=== PATIENT | female | born 1995 | race Caucasian/White ===

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

== ENCOUNTER 2017-05-10 17:51 | Emergency (ER) | payer MEDICARE, MEDICAID ==
[2017-05-10 18:34] VITALS: BP 107/61
--- NOTE | 2017-05-10 18:41 | UC ---
Ear Complaint HPI - HPI Summary HPI Summary: 22 year old female with ear pain. History of ear pain and infection. BILATERAL EAR COMPLAINT. HAS HAD TUBES IN THE PAST AND HX OF RUPTURED EAR DRUM. EARS HAVE BEEN RED AND WARM TO TOUCH. HAS AN APPOINTMENT WITH ENT IN MAY. Has had the pain starting today per family member and constantly pulling at the ear and complaining. No fever. no discharge. no other complaints. [ End ] - History of Current Complaint Chief Complaint: UCEar Stated Complaint: LEFT EAR COMPLAINT Time Seen by Provider: 05/10/17 18:35 Hx Obtained From: Patient, Family/Edger Operator Hx Last Menstrual Period: UNKNOW , MOTHER IS NOT SURE Onset/Duration: Gradual Onset Severity Initially: Moderate Related History: Prior ENT Surgery - Allergies/Home Medications Allergies/Adverse Reactions: Allergies Allergy/AdvReac Type Severity Reaction Status Date / Time No Known Allergies Allergy Verified 05/10/17 18:18 Home Medications: Home Medications Melatonin 3 mg PO BID PRN 05/10/17 [History Confirmed 05/10/17] PMH/Surg Hx/FS Hx/Imm Hx Previously Healthy: Yes - Surgical History Surgical History: Yes Surgery Procedure, Year, and Place: bilateral ear tubes, ENT surgery 08/22/16 to check tubes, found perforated TM requiring stitching? - Family History Known Family History: Positive: Cardiac Disease, Hypertension, Diabetes - Social History Occupation: Student Lives: With Family Alcohol Use: None Substance Use Type: None Smoking Status (MU): Never Smoked Tobacco Have You Smoked in the Last Year: No - Immunization History Vaccination Up to Date: Yes Review of Systems ENT: Ear Ache, Nasal Discharge All Other Systems Reviewed And Are Negative: Yes Physical Exam Triage Information Reviewed: Yes Appearance: Well-Appearing, Well-Nourished, Obese Vital Signs: Initial Vital Signs Temp 98.5 F 05/10/17 18:23 Pulse 99 05/10/17 18:23 Resp 20 05/10/17 18:23 BP 107/61 05/10/17 18:23 Pulse Ox 99 05/10/17 18:23 Vital Signs Reviewed: Yes Eye Exam: Normal ENT Exam: Normal ENT: Positive: TM dull, Other: - right ear with ear tube and seous effusion . left ear with some mild inflammation of the ear canal with moderate cerumen and serous effusion. scarring present. no discharge. Dental Exam: Normal Neck exam: Normal Neck: Positive: 1 Respiratory Exam: Normal Cardiovascular Exam: Normal Abdominal Exam: Normal Musculoskeletal Exam: Normal Neurological Exam: Normal Psychological Exam: Normal Skin Exam: Normal Ear Complaint Course/Dx - Course Course Of Treatment: f/u with PCP and ENT . - Differential Dx/Diagnosis Differential Diagnosis/HQI/PQRI: Otitis Externa, Otitis Media, Perforated TM Provider Diagnoses: Otitis externa left Discharge - Discharge Plan Condition: Good Disposition: HOME Prescriptions: Neomyc/Polym/HC 1% OTIC SUSP* [Cortisporin Otic Susp 1%*] 4 drop LEFT EAR TID # 1 btl Patient Education Materials: Otitis Externa (ED) Referrals: Rossana Daniel MD [Primary Care Provider] - 4 Days
== END 2017-05-10 18:48 | disposition home or self-care (01) ==
LOC: UCCORT 17:51
DX: H60.92 Unspecified otitis externa, left ear (principal)
CPT/HCPCS: 99212; G0463

== ENCOUNTER 2017-05-19 12:07 | Emergency (ER) | payer MEDICAID, MEDICARE, OTHER ==
[2017-05-19 13:58] VITALS: BP 134/63
--- NOTE | 2017-05-19 14:21 | UC ---
Ear Complaint HPI - HPI Summary HPI Summary: 22 y/o Autistic female presents to the urgent care accompany by grandmother c/o B/L ear pain for the past week. Grand mother states her grand daughter was seen here at the clinic on 05/10/2017 for Rt otitis externa and Rx Otic drops. she has been applying the Otic drops, but now her grand daughter is complaining of both ear. Subjective fever last night, crying with pain. She gave her Tylenol PO to alleviate symptoms. She also has mild nasal congestion. Pt unable to describe pain, but is uncomfortably showing her ear hurts. Grand mother denies SOB, cough, N/V/D, abdominal pain. Grandmother states PT has Hx B/L ear tubes, and on 08/2016. she had surgery since one fell off and TM was ruptured. - History of Current Complaint Chief Complaint: UCEar Stated Complaint: EARS,COUGH Time Seen by Provider: 05/19/17 14:20 Hx Obtained From: Patient, Family/Blocker Automatic - grandmother Hx Last Menstrual Period: intermittent spotting. ?: No Onset/Duration: Gradual Onset, Lasting Days, Still Present Severity Initially: Mild Severity Currently: Moderate Pain Scale Used: unable to describe, Pt pointing at ear Aggravating Factors: Nothing Alleviating Factors: OTC Meds Associated Signs/Symptoms: Positive: Discharge - RT ear yellowish discharge - Allergies/Home Medications Allergies/Adverse Reactions: Allergies Allergy/AdvReac Type Severity Reaction Status Date / Time No Known Allergies Allergy Verified 05/19/17 13:52 PMH/Surg Hx/FS Hx/Imm Hx Previously Healthy: Yes Respiratory History: Asthma Other Neurological History: Autism - Surgical History Surgical History: Yes Surgery Procedure, Year, and Place: bilateral ear tubes, ENT surgery 08/22/16 to check tubes, found perforated TM requiring stitching? - Family History Known Family History: Positive: Cardiac Disease, Hypertension, Diabetes - Social History Occupation: Student Lives: With Family Alcohol Use: None Substance Use Type: None Smoking Status (MU): Never Smoked Tobacco Have You Smoked in the Last Year: No - Immunization History Vaccination Up to Date: Yes Review of Systems Constitutional: Negative Skin: Negative Eyes: Negative ENT: Ear Ache - B/L Respiratory: Negative Cardiovascular: Negative Gastrointestinal: Negative Genitourinary: Negative Motor: Negative Neurovascular: Negative Musculoskeletal: Negative Neurological: Negative Psychological: Negative Is Patient Immunocompromised?: No All Other Systems Reviewed And Are Negative: Yes Physical Exam Triage Information Reviewed: Yes Vital Signs: Initial Vital Signs Temp 98.5 F 05/19/17 13:54 Pulse 100 05/19/17 13:54 Resp 20 05/19/17 13:54 BP 134/63 05/19/17 13:54 Pulse Ox 97 05/19/17 13:54 - Additional Comments Vital signs: reviewed General:well appearing, well nourished, with mild pain distress pointing at the RT ear. Skin: [place], warm and dry, no evidence of atopic dermatitis, psoriasis, seborrhea. HEENT: -Head: atraumatic, non tender; no scalp dermatitis. -Eyes: sclera and conjunctiva clear, PERRLA, EOMI -Ears: no pre- or postauricular lymphadenopathy or erythema; RT external ear canal with erythema and yellowish purulent discharge, pinna tenderness on palpation, Rt TM injected ,with purulent discharge. LF external ear canal clear and LF TM WNL, ear tube in place. -Nose/Face: erythematous and edematous nasal mucosa with clear rhinorrhea, no frontal or maxillary sinus tender to palpation. -Mouth/Throat: Mucous membrane moist, posterior pharynx clear, no erythema or exudates. Neck: supple, FROM, nontender, no lymphadenopathy, no meningismus. Chest: Clear to auscultation, normal breath sounds Abd: soft, Bowel sounds active, Nontender. Back: no spinal or CVAT Neuro: A&O x4, GCS 15, no focal neuro deficits, Ear Complaint Course/Dx - Course Course Of Treatment: 22 y/o Autistic female presents to the urgent care accompany by grandmother c/o B/L ear pain. Grand mother states her grand daughter was seen here at the clinic on 05/10/2017 for Rt otitis externa and Rx Otic drops. she has been applying the Otic drops, but now her grand daughter is complaining of both ear. Subjective fever last night, crying with pain. She gave her Tylenol PO to alleviate symptoms. She also has mild nasal congestion. Pt unable to describe pain, but is uncomfortably showing her ear hurts. Grand mother denies SOB, cough, N/V/D, abdominal pain.Grandmother states Pt has Hx B/ L ear tubes, and on 08/2016. she had surgery since one fell off and TM was ruptured. Hx obtained. Pt with RT acute otitis Media on examination. Pt Rx Amoxicillin PO and Ibuprofen PO. Grand mothr advised to if not improvement of symptoms to f/u with her ENT or DR Rojas for further evaluation and treatment. Grandmother understood and agreed with D/C instructions. - Differential Dx/Diagnosis Differential Diagnosis/HQI/PQRI: Mastoiditis, Otitis Externa, Otitis Media, Perforated TM, Pharyngitis Provider Diagnoses: 1- Right Acute otitis Media Discharge - Discharge Plan Condition: Stable Disposition: HOME Prescriptions: Amoxicillin PO (*) [Amoxicillin 875 MG (*)] 875 mg PO BID #20 tab Ibuprofen TAB* [Motrin TAB* 800 MG] 800 mg PO Q6H #20 tab Patient Education Materials: Otitis Media (ED) Referrals: Rossana Daniel MD [Primary Care Provider] - 3 Days Zafar Rojas MD [Medical Doctor] - 1 Week Additional Instructions: 1-Please take full course of antibiotic as directed to avoid any resistance. continue applying otic drops in her LF external ear. 2-Take ibuprofen PO after meals for pain. 3-If symptoms do not improve or worsen please f/u with your PCP or return to the urgent care for further evaluation and treatment. 4- Please f/u with your ENT or Dr Rojas if your grand daughter's symptoms do not improve or she continues with recurrent ear infections.
== END 2017-05-19 15:00 | disposition home or self-care (01) ==
LOC: UCCORT 12:07
DX: H66.91 Otitis media, unspecified, right ear (principal); R05 Cough; R09.81 Nasal congestion
CPT/HCPCS: 99212; G0463

== ENCOUNTER 2017-08-11 11:24 | Emergency (ER) | payer MEDICARE, MEDICAID ==
[2017-08-11 14:17] VITALS: BP 126/76
--- NOTE | 2017-08-11 14:24 | UC ---
Ear Complaint HPI - History of Current Complaint Chief Complaint: UCEar Stated Complaint: LEFT EAR COMPLAINT Time Seen by Provider: 08/11/17 14:10 Hx Obtained From: Patient Hx Last Menstrual Period: intermittent spotting. ?: No Onset/Duration: Gradual Onset, Lasting Days Severity Initially: Moderate Severity Currently: Moderate Alleviating Factors: Nothing Associated Signs/Symptoms: Positive: URI Symptoms - Damon has had congestion and has been pointing to the left ear. SHe is non verbal and may have pain there. She also has Left TM rupture and has an appt with ENt in September already scheduled. - Allergies/Home Medications Allergies/Adverse Reactions: Allergies Allergy/AdvReac Type Severity Reaction Status Date / Time No Known Allergies Allergy Verified 08/11/17 14:08 PMH/Surg Hx/FS Hx/Imm Hx Previously Healthy: No - MR. Prior ear tubes. - Surgical History Surgical History: Yes Surgery Procedure, Year, and Place: bilateral ear tubes, ENT surgery 08/22/16 to check tubes, found perforated TM requiring stitching? - Family History Known Family History: Positive: Cardiac Disease, Hypertension, Diabetes - Social History Lives: With Family Alcohol Use: None Substance Use Type: None Smoking Status (MU): Never Smoked Tobacco Have You Smoked in the Last Year: No - Immunization History Most Recent Influenza Vaccination: 2017 Vaccination Up to Date: Yes Review of Systems ENT: Ear Ache, Sinus Congestion All Other Systems Reviewed And Are Negative: Yes Physical Exam Triage Information Reviewed: Yes Appearance: Well-Appearing, No Pain Distress, Obese Vital Signs: Initial Vital Signs Temp 98 F 08/11/17 14:10 Pulse 99 08/11/17 14:10 Resp 18 08/11/17 14:10 BP 126/76 08/11/17 14:10 Pulse Ox 96 08/11/17 14:10 Vital Signs Reviewed: Yes Eyes: Positive: Conjunctiva Clear. Negative: Conjunctiva Inflamed ENT Exam: Other - left tm has a perforation without any remaining redness, tenderness, swelling or drainage. ENT: Positive: Normal ENT inspection, Pharynx normal, Nasal congestion. Negative: Nasal drainage, TM bulging, TM dull, TM red, Tonsillar swelling, Tonsillar exudate Neck: Positive: Supple, Nontender, No Lymphadenopathy Respiratory: Positive: Lungs clear, Normal breath sounds, No respiratory distress, No accessory muscle use, Respiratory distress. Negative: Decreased breath sounds, Accessory muscle use, Crackles, Rhonchi, Stridor Cardiovascular: Positive: No Murmur, Pulses Normal, Brisk Capillary Refill Abdomen Description: Positive: No Organomegaly, Soft. Negative: Distended, Guarding Musculoskeletal: Positive: Strength Intact, ROM Intact, No Edema Neurological: Positive: Alert, Muscle Tone Normal. Negative: Fatigued Skin: Negative: rashes Ear Complaint Course/Dx - Differential Dx/Diagnosis Provider Diagnoses: uri. suspected ear pain. Discharge - Discharge Plan Condition: Good Disposition: HOME Patient Education Materials: Earache (ED) Referrals: Rossana Daniel MD [Primary Care Provider] - If Needed Additional Instructions: You can try decongestants such as tylenol cold and sinus, mucinex decongestant.
== END 2017-08-11 14:25 | disposition home or self-care (01) ==
LOC: UCCORT 11:24
DX: J06.9 Acute upper respiratory infection, unspecified (principal); H92.02 Otalgia, left ear; E66.9 Obesity, unspecified
CPT/HCPCS: 99211; G0463

== ENCOUNTER 2017-09-16 10:29 | Emergency (ER) | payer MEDICARE, MEDICAID ==
[2017-09-16 12:40] VITALS: BP 117/70
--- NOTE | 2017-09-16 12:51 | UC ---
Ear Complaint HPI - HPI Summary HPI Summary: Pt accompanied by grandmother. Grandmother reports that pt has been "screaming" an dc/o of left ear pain. Pt has history of bilateral ear tubes and [place] [facility] [place] and has known ruptured Right TM rupture. - History of Current Complaint Chief Complaint: UCEar Stated Complaint: EAR PAIN Time Seen by Provider: 09/16/17 12:37 Hx Obtained From: Family/Neon Sign Maker Hx Last Menstrual Period: unknown ?: No Severity Initially: Mild Severity Currently: Moderate Pain Intensity: 6 Alleviating Factors: Other (Noted In Comments) - pt unable to convey information due to preexisitng cognitive impairment. - Allergies/Home Medications Allergies/Adverse Reactions: Allergies Allergy/AdvReac Type Severity Reaction Status Date / Time No Known Allergies Allergy Verified 09/16/17 12:35 PMH/Surg Hx/FS Hx/Imm Hx Previously Healthy: Yes - cognitive impairment - Surgical History Surgical History: Yes Surgery Procedure, Year, and Place: bilateral ear tubes, ENT surgery 08/22/16 to check tubes, found perforated TM requiring stitching? - Family History Known Family History: Positive: Cardiac Disease, Hypertension, Diabetes - Social History Occupation: Disabled Lives: With Family Alcohol Use: None Substance Use Type: None Smoking Status (MU): Never Smoked Tobacco Have You Smoked in the Last Year: No - Immunization History Most Recent Influenza Vaccination: 2017 Vaccination Up to Date: Yes Review of Systems Constitutional: Fever - unknown, Other - cognitive impairment, unreliable historian Skin: Negative Eyes: Negative ENT: Ear Ache Respiratory: Negative Cardiovascular: Negative Gastrointestinal: Negative Genitourinary: Negative Motor: Negative Neurovascular: Negative Musculoskeletal: Negative Neurological: Negative Psychological: Negative Is Patient Immunocompromised?: No All Other Systems Reviewed And Are Negative: Yes Physical Exam Triage Information Reviewed: Yes Appearance: Pain Distress - c/o ear pain Vital Signs: Initial Vital Signs Temp 99.2 F 09/16/17 12:32 Pulse 98 09/16/17 12:32 Resp 18 09/16/17 12:32 BP 117/70 09/16/17 12:32 Pulse Ox 98 09/16/17 12:32 Vital Signs Reviewed: Yes Eye Exam: Normal ENT Exam: Other ENT: Positive: Other - left TM ruptured, Right ear canal ear tube noted and appears to be out of TM and reveresd in ear canal Neck exam: Normal Respiratory Exam: Normal Cardiovascular Exam: Normal Musculoskeletal Exam: Normal Neurological Exam: Normal Psychological Exam: Other Psychological: Positive: Other: - cognitive impairment Skin Exam: Normal Ear Complaint Course/Dx - Differential Dx/Diagnosis Differential Diagnosis/HQI/PQRI: Otitis Media, URI Provider Diagnoses: left ear pain- ruptured TM. FB right Ear canal Discharge - Discharge Plan Condition: Stable Disposition: HOME Patient Education Materials: Ruptured Eardrum (ED), Earache (ED) Referrals: Rossana Daniel MD [Primary Care Provider] - Additional Instructions: Please follow up with your PCP and ENT provider as needed. Please note in the physical exam, it was noted that the right ear tube is in the ear canal.
== END 2017-09-16 13:05 | disposition home or self-care (01) ==
LOC: UCCORT 10:29
DX: S09.22XA Traumatic rupture of left ear drum, initial encounter (principal); T16.2XXA Foreign body in left ear, initial encounter; X58.XXXA Exposure to other specified factors, initial encounter; Y93.9 Activity, unspecified; Y92.9 Unspecified place or not applicable
CPT/HCPCS: 99212; G0463

== ENCOUNTER 2018-03-14 12:47 | Emergency (ER) | payer MEDICAID, MEDICARE, OTHER ==
[2018-03-14 13:15] VITALS: BP 102/50
--- NOTE | 2018-03-14 13:18 | UC ---
Ear Complaint HPI - HPI Summary HPI Summary: 23 year old female with ear pain. Has history of numerous ear infections. Goes to ENT Dr Rojas and called in the office and they started topical drops and per grand parent not improved with the drops. They called ENT today and could not get a hold of any one that is why they came to as they believe patient may need oral antibiotics and not just topical. No fever. no ear discharge out of normal. patient with autism and has difficulty communicating her symptoms and concerns. Has had left ear pain and it looked red to grand mother. - History of Current Complaint Chief Complaint: UCEar Stated Complaint: EAR CONCERN Time Seen by Provider: 03/14/18 13:01 Hx Obtained From: Patient, Family/Supervisor Knitting Hx Last Menstrual Period: none Onset/Duration: Gradual Onset Severity Initially: Moderate Severity Currently: Severe Pain Intensity: 10 - Allergies/Home Medications Allergies/Adverse Reactions: Allergies Allergy/AdvReac Type Severity Reaction Status Date / Time No Known Allergies Allergy Verified 03/14/18 13:09 Home Medications: Home Medications Acetaminophen [Acetaminophen Extra Strength] 500 mg PO ONCE PRN 03/14/18 [ History Confirmed 03/14/18] Loratadine 10 mg PO QPM 03/14/18 [History Confirmed 03/14/18] Melatonin 1 mg PO BID 03/14/18 [History Confirmed 03/14/18] Ofloxacin 0.3% OTIC.OLEG* [Floxin 0.3% OTIC.OLEG*] 4 drop BOTH EARS BID 03/14/18 [ History Confirmed 03/14/18] PMH/Surg Hx/FS Hx/Imm Hx Previously Healthy: Yes - Surgical History Surgical History: Yes Surgery Procedure, Year, and Place: bilateral ear tubes, ENT surgery 08/22/16 to check tubes, found perforated TM requiring stitching? - Family History Known Family History: Positive: Cardiac Disease, Hypertension, Diabetes - Social History Occupation: Unemployed Alcohol Use: None Substance Use Type: None Smoking Status (MU): Never Smoked Tobacco Have You Smoked in the Last Year: No - Immunization History Most Recent Influenza Vaccination: 2017 Vaccination Up to Date: Yes Review of Systems ENT: Ear Ache Psychological: Anxious Is Patient Immunocompromised?: No All Other Systems Reviewed And Are Negative: Yes Physical Exam Triage Information Reviewed: Yes Completion Of Physical Exam Limited Due To: Other - non verbal Appearance: Well-Appearing, No Pain Distress, Well-Nourished Vital Signs: Initial Vital Signs Temp 98.3 F 03/14/18 12:55 Pulse 103 03/14/18 12:55 Resp 20 03/14/18 12:55 BP 102/50 03/14/18 12:55 Pulse Ox 98 03/14/18 12:55 Vital Signs Reviewed: Yes Eye Exam: Normal ENT: Positive: Pharynx normal, Nasal congestion, TM bulging, TM dull, TM red - left Respiratory Exam: Normal Cardiovascular Exam: Normal Musculoskeletal Exam: Normal Neurological Exam: Normal Psychological Exam: Normal Skin Exam: Normal Ear Complaint Course/Dx - Course Course Of Treatment: f/u with ENT and cont with the drops as well. RTO if any concerns. - Differential Dx/Diagnosis Differential Diagnosis/HQI/PQRI: Otitis Externa, Otitis Media, Perforated TM Provider Diagnoses: Left AOM Discharge - Sign-Out/Discharge Documenting (check all that apply): Patient Departure - Discharge Plan Condition: Good Disposition: HOME Prescriptions: Amoxicillin PO (*) [Amoxicillin 875 MG (*)] 875 mg PO BID 10 Days #20 tab Patient Education Materials: Ear Infection (ED) Referrals: Rossana Daniel MD [Primary Care Provider] - 4 Days Additional Instructions: Please follow up with your ENT doctor . - Billing Disposition and Condition Condition: GOOD Disposition: Home
== END 2018-03-14 13:46 | disposition home or self-care (01) ==
LOC: UCCORT 12:47
DX: H66.92 Otitis media, unspecified, left ear (principal)
CPT/HCPCS: 99212; G0463

== ENCOUNTER 2018-07-28 11:30 | Emergency (ER) | payer MEDICARE ==
[2018-07-28 12:17] VITALS: BP 128/90
--- NOTE | 2018-07-28 12:37 | UC ---
Skin Complaint HPI - HPI Summary HPI Summary: Started w/ L lower mouth irritation and then a pimple 2 days ago. Grandmother is primary promotional marketing agent and states shes had impetigo before and would like ointment. its worsened w/ saliva and moisture, nothing makes it better. Grandmother also wondering if we could check ears. She does have TM issues and has ENT SPEcialist on board but tubes recently fell out and wondering if there is an infection in R ear. nothing makes the pain better/worse. - History of Current Complaint Chief Complaint: UCSkin Time Seen by Provider: 07/28/18 12:06 Stated Complaint: SKIN CONCERN Hx Obtained From: Family/Geothermal Heat Pump Machinist Hx From Patient Unobtainable Due To: Other - mental/cognition Hx Last Menstrual Period: n/a Onset/Duration: Gradual Onset Pain Intensity: 5 Pain Scale Used: 0-10 Numeric - Allergy/Home Medications Allergies/Adverse Reactions: Allergies Allergy/AdvReac Type Severity Reaction Status Date / Time No Known Allergies Allergy Verified 07/28/18 12:17 PMH/Surg Hx/FS Hx/Imm Hx - Additional Past Medical History Additional PMH: mental retardation - Surgical History Surgical History: Yes Surgery Procedure, Year, and Place: bilateral ear tubes, ENT surgery 08/22/16 to check tubes, found perforated TM requiring stitching? - Family History Known Family History: Positive: Cardiac Disease, Hypertension, Diabetes - Social History Alcohol Use: None Substance Use Type: None Smoking Status (MU): Never Smoked Tobacco Have You Smoked in the Last Year: No - Immunization History Most Recent Influenza Vaccination: 2017 Vaccination Up to Date: Yes Review of Systems All Other Systems Reviewed And Are Negative: Yes Constitutional: Positive: Negative. Negative: Fever Skin: Positive: Rash - mouth ENT: Positive: Ear Ache - R. Negative: Dental Pain, Sore Throat Respiratory: Positive: Negative Neurological: Negative: Headache Physical Exam Triage Information Reviewed: Yes Appearance: Well-Appearing Vital Signs: Initial Vital Signs Temp 98 F 07/28/18 12:04 Pulse 104 07/28/18 12:04 Resp 22 07/28/18 12:04 BP 128/90 07/28/18 12:04 Pulse Ox 97 07/28/18 12:04 Vital Signs Reviewed: Yes Eyes: Positive: Conjunctiva Clear ENT: Positive: Other - L TM unremarkable. R canal inflammaed w/ debris and TM open from previous tube placement. Dental: Negative: Gross Decay/Caries @ Respiratory Exam: Normal Cardiovascular Exam: Normal Skin: Positive: Rashes - irritation on L lower lip/skin w/ some crusting Course/Dx - Course Course Of Treatment: Recurrent impetigo in L lower skin of mouth. Mild case. R TM needs f/u from ENT since tube fell out and will tx her OE. - Differential Diagnoses - Skin Complaint Differential Diagnoses: Cellulitis, Drug Rash, Tinea, Viral Exanthem - Diagnoses Provider Diagnosis: Impetigo, Otitis externa Discharge - Sign-Out/Discharge Documenting (check all that apply): Patient Departure All imaging exams completed and their final reports reviewed: No Studies - Discharge Plan Condition: Good Disposition: HOME Prescriptions: Neomyc/Polym/HC 1% OTIC SUSP* [Cortisporin Otic Susp 1%*] 4 drop RIGHT EAR TID # 1 btl Patient Education Materials: Impetigo (DC) Referrals: Rossana Daniel MD [Primary Care Provider] - Additional Instructions: For your ENT appt in Sep please ensure there is a proper visit where a provider can recheck ears/Tympanic membranes. - Billing Disposition and Condition Condition: GOOD Disposition: Home
[2018-07-28] MEDS ORDERED: Mupirocin 2% OINT* TUBE TOPICAL SCH (21:00)
== END 2018-07-28 12:46 | disposition home or self-care (01) ==
LOC: UCCORT 11:30
DX: L01.00 Impetigo, unspecified (principal); F79 Unspecified intellectual disabilities; H60.91 Unspecified otitis externa, right ear
CPT/HCPCS: 99212; G0463

== ENCOUNTER 2018-09-07 12:03 | Emergency (ER) | payer MEDICARE, OTHER ==
[2018-09-07 12:41] VITALS: BP 122/69
--- NOTE | 2018-09-07 13:21 | UC ---
Skin Complaint HPI - HPI Summary HPI Summary: Patient was being treated for impetigo under her arms from a rash that started after her cartaker shaved her armpits. is is not improving but getting worse. no hx of MRSA - History of Current Complaint Chief Complaint: UCSkin Time Seen by Provider: 09/07/18 13:08 Stated Complaint: SKIN COMPLAINT Hx Obtained From: Family/Machinist Hx Last Menstrual Period: n/a ?: No Onset/Duration: Sudden Onset, Lasting Days Skin Exposure Onset/Duration: Days Ago Timing: Constant Onset Severity: Mild Current Severity: Moderate Pain Intensity: 4 Location: Diffuse - bilateral axilla Aggravating Factor(s): Clothing, Wet Conditions, Humidity, Touch Alleviating Factor(s): Nothing Associated Signs & Symptoms: Positive: Rash - Allergy/Home Medications Allergies/Adverse Reactions: Allergies Allergy/AdvReac Type Severity Reaction Status Date / Time amoxicillin Allergy Rash Verified 09/07/18 12:42 Home Medications: Home Medications Cephalexin CAP* [Keflex CAP*] 250 mg PO BID 09/07/18 [History Confirmed 09/07/18 ] LORazepam TAB(*) [Ativan 1 MG TAB (*)] 1 mg PO BID 09/07/18 [History Confirmed 09/07/18] Omeprazole 20 mg PO DAILY 09/07/18 [History Confirmed 09/07/18] QUEtiapine TAB* [Seroquel 100 MG *] 50 mg PO BEDTIME 09/07/18 [History Confirmed 09/07/18] PMH/Surg Hx/FS Hx/Imm Hx Previously Healthy: Yes - Surgical History Surgical History: Yes Surgery Procedure, Year, and Place: bilateral ear tubes, ENT surgery 08/22/16 to check tubes, found perforated TM requiring stitching - Family History Known Family History: Positive: Cardiac Disease, Hypertension, Diabetes - Social History Alcohol Use: None Substance Use Type: None Smoking Status (MU): Never Smoked Tobacco Have You Smoked in the Last Year: No - Immunization History Most Recent Influenza Vaccination: 2017 Vaccination Up to Date: Yes Review of Systems All Other Systems Reviewed And Are Negative: Yes Constitutional: Positive: Negative Skin: Positive: Rash Eyes: Positive: Negative ENT: Positive: Negative Respiratory: Positive: Negative Cardiovascular: Positive: Negative Gastrointestinal: Positive: Negative Genitourinary: Positive: Negative Motor: Positive: Negative Neurovascular: Positive: Negative Musculoskeletal: Positive: Negative Neurological: Positive: Negative Psychological: Positive: Other - mental delay Is Patient Immunocompromised?: No Physical Exam Triage Information Reviewed: Yes Appearance: Well-Appearing, Well-Nourished, Pain Distress Vital Signs: Initial Vital Signs Temp 97.5 F 09/07/18 12:36 Pulse 99 09/07/18 12:36 Resp 18 09/07/18 12:36 BP 122/69 09/07/18 12:36 Pulse Ox 97 09/07/18 12:36 Vital Signs Reviewed: Yes Eye Exam: Normal ENT Exam: Normal Dental Exam: Normal Neck exam: Normal Respiratory Exam: Normal Respiratory: Positive: Chest non-tender, Lungs clear, Normal breath sounds Cardiovascular Exam: Normal Cardiovascular: Positive: RRR, No Murmur, Pulses Normal Abdominal Exam: Normal Abdomen Description: Positive: Nontender, No Organomegaly, Soft Musculoskeletal Exam: Normal Neurological Exam: Normal Psychological Exam: Normal Skin: Positive: Rashes - red rash under bilateral arms, small scabbed areas noted Course/Dx - Differential Diagnoses - Skin Complaint Differential Diagnoses: Abscess, Cellulitis, Contact Dermatitis, Urticaria - Diagnoses Provider Diagnosis: Folliculitis Discharge - Sign-Out/Discharge Documenting (check all that apply): Patient Departure All imaging exams completed and their final reports reviewed: No Studies - Discharge Plan Condition: Stable Disposition: HOME Prescriptions: Sulfamethox/Trimethoprim DS* [Bactrim DS 800/160 TAB*] 1 tab PO BID #14 tab Patient Education Materials: Folliculitis (ED) Referrals: JEANE Wolf [Primary Care Provider] - Additional Instructions: 1. stop the current antibiotics 2. Start the new antibiotics you should be able to get two doses started today. 3. COntinue to clean with warm water and thouroughly dry 4. avoid shaving at this time 5. Follow up as needed. - Billing Disposition and Condition Condition: STABLE Disposition: Home
--- NOTE | 2018-09-08 15:55 | UC ---
- Progress Note Progress Note: Talked with patients mofany mcmullen is her farmworker egg producing farm to notify her of the Positive MRSA results. Advised to Follow up with her PCP for care. Course/Dx - Diagnoses Provider Diagnoses: Folliculitis Discharge - Sign-Out/Discharge Documenting (check all that apply): Post-Discharge Follow Up All imaging exams completed and their final reports reviewed: No Studies - Discharge Plan Condition: Stable Disposition: HOME Prescriptions: Sulfamethox/Trimethoprim DS* [Bactrim DS 800/160 TAB*] 1 tab PO BID #14 tab Patient Education Materials: Folliculitis (ED) Referrals: JEANE Wolf [Primary Care Provider] - Additional Instructions: 1. stop the current antibiotics 2. Start the new antibiotics you should be able to get two doses started today. 3. COntinue to clean with warm water and thouroughly dry 4. avoid shaving at this time 5. Follow up as needed. - Billing Disposition and Condition Condition: STABLE Disposition: Home
== END 2018-09-07 13:23 | disposition home or self-care (01) ==
LOC: UCCORT 12:03
DX: L73.9 Follicular disorder, unspecified (principal); F79 Unspecified intellectual disabilities; Z22.322 Carrier or suspected carrier of Methicillin resistant Staphylococcus aureus; Z88.0 Allergy status to penicillin
CPT/HCPCS: 87070; 87077; 87186; 87205; 87640; 87641; 99212; G0463

== ENCOUNTER 2019-04-24 18:08 | Emergency (ER) | payer MEDICARE, OTHER ==
[2019-04-24 18:43] VITALS: BP 112/80
--- NOTE | 2019-04-24 19:21 | ED ---
Throat Pain/Nasal Congestion - HPI Summary HPI Summary: 24 yr old female with the complaint of right ear pain. She is non verbal. she is here with her Grandmother who takes care of her. She had her ears flushed at her primary care yesterday and has had some brown drainage from each ear. She is pulling on the right ear a bit today. No other complaints. - History of Current Complaint Chief Complaint: UCEar Time Seen by Provider: 04/24/19 19:02 - Allergies/Home Medications Allergies/Adverse Reactions: Allergies Allergy/AdvReac Type Severity Reaction Status Date / Time amoxicillin Allergy Rash Verified 04/24/19 18:44 Home Medications: Home Medications Paliperidone [Invega] 3 mg PO DAILY 04/24/19 [History Confirmed 04/24/19] diphenhydrAMINE HCl [Benadryl Allergy] 50 mg PO BEDTIME 04/24/19 [History Confirmed 04/24/19] PMH/Surg Hx/FS Hx/Imm Hx - Surgical History Surgery Procedure, Year, and Place: bilateral ear tubes, ENT surgery 08/22/16 to check tubes, found perforated TM requiring stitching Infectious Disease History: No Infectious Disease History: Denies: History Other Infectious Disease, Traveled Outside the [place] in Last 30 Days - Family History Known Family History: Positive: Cardiac Disease, Hypertension, Diabetes - Social History Occupation: Employed Full-time Alcohol Use: None Substance Use Type: Reports: None Smoking Status (MU): Never Smoked Tobacco Have You Smoked in the Last Year: No Review of Systems Constitutional: Negative Positive: Ear Ache All Other Systems Reviewed And Are Negative: Yes Physical Exam Triage Information Reviewed: Yes Vital Signs On Initial Exam: Initial Vitals Temp Pulse Resp BP Pulse Ox 97.7 F 115 18 112/80 98 04/24/19 18:35 04/24/19 18:35 04/24/19 18:35 04/24/19 18:35 04/24/19 18:35 Vital Signs Reviewed: Yes Appearance: Positive: Well-Appearing, No Pain Distress Skin: Positive: Warm, Skin Color Reflects Adequate Perfusion Head/Face: Positive: Normal Head/Face Inspection Eyes: Positive: EOMI ENT: Positive: TM red - right with erythema. No perforation. There is some soft wax in each external canal. Left TM appears wnl. Neck: Positive: Nontender Respiratory/Lung Sounds: Positive: Clear to Auscultation, Breath Sounds Present Cardiovascular: Positive: RRR. Negative: Murmur Abdomen Description: Negative: Distended Musculoskeletal: Positive: Strength/ROM Intact Neurological: Positive: Sensory/Motor Intact, Alert, Oriented to Person Place, Time, CN Intact II-III, Normal Gait, Speech Normal Psychiatric: Positive: Normal Diagnostics - Vital Signs Vital Signs Temp Pulse Resp BP Pulse Ox 04/24/19 18:35 97.7 F 115 18 112/80 98 - Laboratory Lab Statement: Any lab studies that have been ordered have been reviewed, and results considered in the medical decision making process. EENT Course/Dx - Course Course Of Treatment: 24 yr old female with right otitis media. Rx with Bactrim DS. FU with PMD. - Diagnoses Provider Diagnoses: Right otitis media Discharge ED - Sign-Out/Discharge Documenting (check all that apply): Patient Departure All imaging exams completed and their final reports reviewed: No Studies - Discharge Plan Condition: Good Disposition: HOME Prescriptions: Sulfamethox/Trimethoprim DS* [Bactrim DS 800/160 TAB*] 1 tab PO BID #20 tab Patient Education Materials: Ear Infection (ED) Referrals: Radha Reynoso NP [Primary Care Provider] - 2 Days - Billing Disposition and Condition Condition: GOOD Disposition: Home
== END 2019-04-24 19:31 | disposition home or self-care (01) ==
LOC: UCCORT 18:08
DX: H66.91 Otitis media, unspecified, right ear (principal); Z88.0 Allergy status to penicillin
CPT/HCPCS: 99212; G0463

== ENCOUNTER 2019-05-07 16:47 | Emergency (ER) | payer OTHER ==
[2019-05-07 17:46] VITALS: BP 115/68
--- NOTE | 2019-05-07 19:23 | UC ---
Ear Complaint HPI - HPI Summary HPI Summary: 24-year-old female with history of autism presents with her grandmother who is her primary caregiver reporting persistent right ear pain with drainage. Patient was seen at this facility on 04/24/2019 for similar complaints after her ear had been irrigated at primary care the day before, she was diagnosed with a right otitis media, and started on a course of Bactrim DS. Grandmother reports that they completed the entire course of antibiotics with no improvement in symptoms. Grandmother states that approximately 3 or 4 days ago she started noticing drainage on her pillowcase. Patient has been followed by ENT in [place] in the past however has not been seen in a couple years. Patient is nonverbal and unable to contribute to the history. Denies fever, chills, or URI symptoms. - History of Current Complaint Chief Complaint: UCEar Stated Complaint: EAR PAIN Time Seen by Provider: 05/07/19 19:04 Hx Last Menstrual Period: grandmother states pt does not get a menses Pain Intensity: 0 - Allergies/Home Medications Allergies/Adverse Reactions: Allergies Allergy/AdvReac Type Severity Reaction Status Date / Time amoxicillin Allergy Rash Verified 05/07/19 17:46 Home Medications: Home Medications Acetaminophen [Tylenol Extra Strength] 500 mg PO DAILY 05/07/19 [History Confirmed 05/07/19] PMH/Surg Hx/FS Hx/Imm Hx GI/ History: Gastroesophageal Reflux Psychological History: Other - Autism - Surgical History Surgical History: None Surgery Procedure, Year, and Place: bilateral ear tubes, ENT surgery 08/22/16 to check tubes, found perforated TM requiring stitching - Family History Known Family History: Positive: Cardiac Disease, Hypertension, Diabetes - Social History Occupation: Disabled Lives: With Family Alcohol Use: None Substance Use Type: None Smoking Status (MU): Never Smoked Tobacco Have You Smoked in the Last Year: No - Immunization History Most Recent Influenza Vaccination: 2017 Vaccination Up to Date: Yes Review of Systems All Other Systems Reviewed And Are Negative: Yes Constitutional: Negative: Fever, Chills Skin: Negative: Rash Eyes: Negative: Drainage, Eye Redness ENT: Positive: Ear Ache. Negative: Nasal Discharge, Sinus Congestion, Sinus Pain/Tenderness Respiratory: Negative: Cough Is Patient Immunocompromised?: No Physical Exam - Summary Physical Exam Summary: GENERAL APPEARANCE: Alert and cooperative, non-verbal, obese adult with developmental disability who appears to be in no acute distress. EYES: Conjunctiva clear. No drainage. EARS: Bialteral external auditory canals with moderate amount of soft cerumen. Left TM partially observed and was intact, opaque with moderate scar tissue but no erythema. Right TM was also partially observed but appeared to be ruptured and mildly erythematous without drainage. NOSE: No nasal discharge. THROAT: Pharynx normal. No tonsilar inflammation, swelling, exudate, or lesions. Uvula midline. NECK: Neck supple, non-tender without lymphadenopathy. CARDIAC: Normal S1 and S2. No S3, S4 or murmurs. Rhythm is regular. There is no peripheral edema, cyanosis or pallor. Extremities are warm and well perfused. Capillary refill is less than 2 seconds. Peripheral pulses intact. LUNGS: Clear to auscultation without rales, rhonchi, wheezing or diminished breath sounds. ABDOMEN: Positive bowel sounds. Soft, nondistended, nontender. No guarding or rebound. No masses or hepatosplenomegally. MUSKULOSKELETAL: ROM intact to all extremities. No joint erythema or tenderness. Normal muscular development. Normal gait. SKIN: Skin normal color, texture and turgor with no lesions or eruptions. Triage Information Reviewed: Yes Vital Signs: Initial Vital Signs Temp 97.7 F 05/07/19 17:44 Pulse 97 05/07/19 17:44 Resp 17 05/07/19 17:44 BP 115/68 05/07/19 17:44 Pulse Ox 97 05/07/19 17:44 Vital Signs Reviewed: Yes Ear Complaint Course/Dx - Course Course Of Treatment: 24-year-old female with history of autism presents with her grandmother who is her primary caregiver reporting persistent right ear pain with drainage. Patient was seen at this facility on 04/24/2019 for similar complaints after her ear had been irrigated at primary care the day before, she was diagnosed with a right otitis media, and started on a course of Bactrim DS. Grandmother reports that they completed the entire course of antibiotics with no improvement in symptoms. Grandmother states that approximately 3 or 4 days ago she started noticing drainage on her pillowcase. Patient has been followed by ENT in [place] in the past however has not been seen in a couple years. Patient is nonverbal and unable to contribute to the history. Denies fever, chills, or URI symptoms. Afebrile. Vital signs stable. Patient had bilateral external auditory canals with moderate amount of soft cerumen, left TM partially observed and was intact, opaque with moderate scar tissue but no erythema, right TM was also partially observed but appeared to be ruptured and mildly erythematous without drainage, and otherwise unremarkable exam. Since she was recently on oral antibiotics I will simply put her on ofloxacin otic drops 10 drops into the right ear once daily 7 days and recommended [id number] analgesics as needed for pain. Offered referral to ENT however grandmother declined. She is to follow-up with her primary care provider in 3-5 days to have the ear rechecked. Anticipatory guidance warning symptoms were reviewed with the grandmother. Verbalizes understanding and agrees with plan of care. - Differential Dx/Diagnosis Differential Diagnosis/HQI/PQRI: Cerumen Impaction, Otitis Externa, Otitis Media , Perforated TM Provider Diagnosis: Otitis media of right ear with rupture of tympanic membrane Discharge ED - Sign-Out/Discharge Documenting (check all that apply): Patient Departure All imaging exams completed and their final reports reviewed: No Studies - Discharge Plan Condition: Stable Disposition: HOME Prescriptions: Ofloxacin 0.3% (Ear Drop)* [Floxin 0.3% OTIC.OLEG (Ear Drop)] 10 drop RIGHT EAR DAILY 7 Days #1 btl Patient Education Materials: Ruptured Eardrum (ED), Ear Infection (ED) Referrals: Radha Reynoso NP [Primary Care Provider] - 3 Days Additional Instructions: Your daughter has an ear infection with ruptured tympanic membrane of the right ear. Start ofloxacin otic drops. Instill 10 drops into the right ear once daily for 7 days. Avoid getting water into the ear. Use acetaminophen (Tylenol) or ibuprofen (Advil, Motrin according to directions as needed for pain. Follow-up with your daughter's primary care provider in 3-5 days to have a recheck of the ear. Immediate medical attention in the emergency room if she develops a fever greater than 100.5 F, has severe ear pain that is not managed with acetaminophen or ibuprofen, has blood draining from the ear, or any worsening of symptoms. - Billing Disposition and Condition Condition: STABLE Disposition: Home
== END 2019-05-07 19:30 | disposition home or self-care (01) ==
LOC: UCCORT 16:47
DX: H66.91 Otitis media, unspecified, right ear (principal); H72.91 Unspecified perforation of tympanic membrane, right ear; F84.0 Autistic disorder; Z88.0 Allergy status to penicillin
CPT/HCPCS: 99212; G0463

== ENCOUNTER 2019-06-22 12:24 | Emergency (ER) | payer MEDICARE, MEDICAID ==
--- OUTSIDE RECORDS SUMMARY | 2019-06-22 12:45 | XMS REPORT ---
:1995 Author Care Team Providers Name Role Phone Unavailable Unavailable Unavailable Problems Condition Condition Condition Status Onset Resolution Last Treating Comments Name Details Category Date Date Treatment Clinician Date Autistic Active 2015-05-13 Disorder 00:00:00 Allergies, Adverse Reactions, Alerts This patient has no known allergies or adverse reactions. Social History Smoking Status Start Date Stop Date Unknown if ever smoked Social History Observation Description Sex Female Medications This patient has no known medications. Vital Signs This patient has no known vital signs. Procedures This patient has no known procedures. Reason for Referral This patient has no known reason for referral. Chief Complaint and Reason for Visit This patient event has no chief complaint or reason for visit specified. Results This patient has no known results. Assessments This patient has no known assessments.
[2019-06-22 12:51] VITALS: BP 113/63
--- NOTE | 2019-06-22 13:03 | UC ---
Ear Complaint HPI - HPI Summary HPI Summary: Pt is accompanied by mother. Mom reports that pt has not been "acting like herself". Pt is cognitively impaired and limited speech/verbal ability. - History of Current Complaint Chief Complaint: UCGeneralIllness Stated Complaint: BILATERAL EAR COMPLAINT Time Seen by Provider: 06/22/19 12:46 Hx Obtained From: Family/Clinical Research Director Hx Last Menstrual Period: unknown ?: No Onset/Duration: Sudden Onset - yesterday Severity Initially: Mild Severity Currently: Mild Pain Intensity: 0 - Allergies/Home Medications Allergies/Adverse Reactions: Allergies Allergy/AdvReac Type Severity Reaction Status Date / Time amoxicillin Allergy Rash Verified 06/22/19 12:51 PMH/Surg Hx/FS Hx/Imm Hx Previously Healthy: Yes - Surgical History Surgical History: None Surgery Procedure, Year, and Place: bilateral ear tubes, ENT surgery 08/22/16 to check tubes, found perforated TM requiring stitching - Family History Known Family History: Positive: Cardiac Disease, Hypertension, Diabetes - Social History Occupation: Disabled Lives: With Family Alcohol Use: None Substance Use Type: None Smoking Status (MU): Never Smoked Tobacco Have You Smoked in the Last Year: No - Immunization History Most Recent Influenza Vaccination: 2017 Vaccination Up to Date: Yes Review of Systems All Other Systems Reviewed And Are Negative: Yes Constitutional: Positive: Negative Skin: Positive: Negative Eyes: Positive: Negative ENT: Positive: Other - pulling at ears Respiratory: Positive: Cough - occasional Cardiovascular: Positive: Negative Gastrointestinal: Positive: Negative Genitourinary: Positive: Negative Motor: Positive: Negative Neurovascular: Positive: Negative Musculoskeletal: Positive: Negative Neurological: Positive: Negative Psychological: Positive: Negative Is Patient Immunocompromised?: No Physical Exam Triage Information Reviewed: Yes Appearance: Well-Appearing Vital Signs: Initial Vital Signs Temp 97.9 F 06/22/19 12:46 Pulse 90 06/22/19 12:46 Resp 16 06/22/19 12:46 BP 113/63 06/22/19 12:46 Pulse Ox 97 06/22/19 12:46 Vital Signs Reviewed: Yes Eye Exam: Normal ENT: Positive: Other - right TM perforated, 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, Neck exam: Normal Respiratory Exam: Normal Cardiovascular Exam: Normal Musculoskeletal Exam: Normal Neurological Exam: Normal Psychological Exam: Normal Skin Exam: Normal Ear Complaint Course/Dx - Differential Dx/Diagnosis Differential Diagnosis/HQI/PQRI: Otitis Media, URI Provider Diagnosis: Ear ache Discharge ED - Sign-Out/Discharge Documenting (check all that apply): Patient Departure All imaging exams completed and their final reports reviewed: No Studies - Discharge Plan Condition: Stable Disposition: HOME Patient Education Materials: Earache (ED) Referrals: Sisi Bello MD [Primary Care Provider] - If Needed - Billing Disposition and Condition Condition: STABLE Disposition: Home
== END 2019-06-22 13:09 | disposition home or self-care (01) ==
LOC: UCCORT 12:24
DX: H92.03 Otalgia, bilateral (principal); H72.91 Unspecified perforation of tympanic membrane, right ear; Z88.0 Allergy status to penicillin
CPT/HCPCS: 99211; G0463

== ENCOUNTER 2019-07-20 12:07 | Emergency (ER) | payer MEDICAID, MEDICARE ==
[2019-07-20 12:21] VITALS: BP 143/88
--- NOTE | 2019-07-20 12:30 | UC ---
Ear Complaint HPI - HPI Summary HPI Summary: Pt is accompanied by mother. 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 Pt was diagnosed with OM on 07/14/19 and put on cefdinir but woke this morning with left our ear redness and camacho clear fluid discharge. 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 Hx Last Menstrual Period: does not get menses ?: No Onset/Duration: Sudden Onset, Still Present Severity Initially: Mild Severity Currently: Mild Pain Intensity: 4 Associated Signs/Symptoms: Positive: Discharge - Allergies/Home Medications Allergies/Adverse Reactions: Allergies Allergy/AdvReac Type Severity Reaction Status Date / Time amoxicillin Allergy Rash Verified 07/20/19 12:16 Home Medications: Home Medications Cefdinir cap* [Cefdinir 300 MG cap (NF)] 2 cap DAILY 07/20/19 [History Confirmed 07/20/19] PMH/Surg Hx/FS Hx/Imm Hx Previously Healthy: Yes - Surgical History Surgical History: None Surgery Procedure, Year, and Place: bilateral ear tubes, ENT surgery 08/22/16 to check tubes, found perforated TM requiring stitching - Family History Known Family History: Positive: Cardiac Disease, Hypertension, Diabetes - Social History Occupation: Disabled Lives: With Family Alcohol Use: None Substance Use Type: None Smoking Status (MU): Never Smoked Tobacco Have You Smoked in the Last Year: No - Immunization History Most Recent Influenza Vaccination: 2017 Vaccination Up to Date: Yes Review of Systems All Other Systems Reviewed And Are Negative: Yes Constitutional: Positive: Negative Skin: Positive: Negative Eyes: Positive: Negative ENT: Positive: Ear Ache Respiratory: Positive: Negative Cardiovascular: Positive: Negative Gastrointestinal: Positive: Negative Genitourinary: Positive: Negative Motor: Positive: Negative Neurovascular: Positive: Negative Musculoskeletal: Positive: Negative Neurological: Positive: Negative Psychological: Positive: Negative Is Patient Immunocompromised?: No Physical Exam Triage Information Reviewed: Yes Completion Of Physical Exam Limited Due To: Other - pt has cognitive and communication limitations Appearance: Well-Appearing Vital Signs: Initial Vital Signs Temp 97.6 F 07/20/19 12:18 Pulse 96 07/20/19 12:18 Resp 20 07/20/19 12:18 BP 143/88 07/20/19 12:18 Pulse Ox 97 07/20/19 12:18 Vital Signs Reviewed: Yes Eye Exam: Normal ENT: Positive: Other - bilateral TM perforation. left outer ear canal erythematous and small amount of clear and camacho Respiratory: Positive: No respiratory distress Musculoskeletal Exam: Normal Neurological Exam: Normal Psychological Exam: Normal - at baseline per [facility] Skin Exam: Normal - mild erythema to Ear Complaint Course/Dx - Differential Dx/Diagnosis Differential Diagnosis/HQI/PQRI: Cellulitis, Perforated TM Provider Diagnosis: Perforation of tympanic membrane, nontraumatic Discharge ED - Sign-Out/Discharge Documenting (check all that apply): Patient Departure All imaging exams completed and their final reports reviewed: No Studies - Discharge Plan Condition: Stable Disposition: HOME Prescriptions: Ofloxacin 0.3% (Ear Drop)* [Floxin 0.3% OTIC.OLEG (Ear Drop)] 5 drop LEFT EAR DAILY 7 Days #1 btl Patient Education Materials: Ear Infection (ED) Referrals: Sisi Bello MD [Primary Care Provider] - If Needed Additional Instructions: Please follow up with your PCP as needed. Please go to the closest emergency room if your symptoms worsen. - Billing Disposition and Condition Condition: STABLE Disposition: Home
== END 2019-07-20 12:40 | disposition home or self-care (01) ==
LOC: UCCORT 12:07
DX: H72.93 Unspecified perforation of tympanic membrane, bilateral (principal); Z88.0 Allergy status to penicillin
CPT/HCPCS: 99212; G0463

== ENCOUNTER 2019-08-11 14:57 | Emergency (ER) | payer MEDICARE | END 2019-08-11 15:11 | disposition left against medical advice (07) | LOC: UCCORT 14:57 | DX: Z53.21 Procedure and treatment not carried out due to patient leaving prior to being seen by health care provider (principal) ==